=== PATIENT | female | born 1980 | race Caucasian/White ===

== ENCOUNTER → 2017-08-25 | Outpatient (REF) ==
[~2017-08-25] MED LIST: AC325T PO; ACHD5005 PO; ALBU17AE3 IH; ALBU8.5H2 IH; ALBUTEROL MDI INH; ANTI14DR4 OT; ASCO-262 PO; B12/1CAP; BUDE10.22 IH; BUDE180A IH; BUDE6HFA IH; BUPR100T6 PO; CALC600T25 PO; CEPH-38 PO; CEPH500C PO; CRAN450T9 PO; CYAN1TAB26 PO; DOXY100C2 PO; ESTR1TAB21 PO; FENO54TA PO; FURO-125 PO; GABA100C PO; HYDR-3714 PO; IBUP-1773 PO; KORE100C3 PO; LISI1TAB PO; LISI1TAB10 PO; METF-380 PO; MULT-305 PO; MULT-608 PO; MULT1CAP27 PO; MULTIVI PO; NAPR-243 PO; NFBIOT1000 PO; OMEG10005 PO; OMG1KC PO; PHEN200T27 PO; PRD50T PO; QVAR 80 MCG INH
--- NOTE | 2017-08-25 16:13 | Diagnostic Imaging Report ---
INDICATION: Injury to left knee. AP, oblique, and lateral views of the left knee are obtained as well as a sunrise view. No fracture or acute bony abnormality is seen. There is mild osteophyte formation in the medial compartment and patellofemoral compartment. There is no overt joint effusion. IMPRESSION: Minor degenerative changes with no acute bony abnormality seen. Dictated by: Dictated on workstation # [id number]
== END | disposition home or self-care (01) ==
LOC: MERGE 15:24 → OCC 15:24
PROVIDERS: ATTEND Nurse Practitioner Family
CPT/HCPCS: 73564

== ENCOUNTER 2018-04-13 08:03 | Outpatient (RCR) | payer MEDICAID, OTHER | END 2018-04-24 | disposition home or self-care (01) | PROVIDERS: ATTEND Orthopaedic Surgery | DX: M65.862 Other synovitis and tenosynovitis, left lower leg (principal); M17.12 Unilateral primary osteoarthritis, left knee ==

== ENCOUNTER → 2018-05-03 | Outpatient (CLI) | payer OTHER ==
[~2018-05-03] MED LIST changes: +PRD20T PO
--- NOTE | 2018-05-03 15:14 | Diagnostic Imaging Report ---
PROCEDURE: MRI left joint lower extremity without contrast. TECHNIQUE: Multiplanar, multisequence non contrast-enhanced MRI of the left lower extremity was accomplished. INDICATION: Left knee pain. No prior studies are available for comparison. There is a moderate sized knee joint effusion. The marrow signal intensity is unremarkable. No geographic marrow lesion or bone bruise is identified. There is some mild tricompartmental degenerative change noted. The ACL and PCL appear to be intact. The medial and lateral collateral ligament complexes are intact. Medial and lateral menisci are unremarkable. No tear or displaced meniscal fragment is seen. Extensor mechanism is unremarkable. IMPRESSION: Tricompartmental degenerative change and moderate joint effusion. No definite ligamentous or meniscal tear is identified. Dictated by: Dictated on workstation # [id number]
== END ==
LOC: RAD 12:10
PROVIDERS: ATTEND Orthopaedic Surgery
DX: M17.12 Unilateral primary osteoarthritis, left knee (principal)
CPT/HCPCS: 73721

== ENCOUNTER 2018-05-04 21:40 | Emergency (ER) | payer SELFPAY ==
[~2018-05-04] VITALS: Ht 154.9 cm; Wt 123.4 kg
[~2018-05-04 21:40] MED LIST changes: -PRD20T PO
[2018-05-04] MEDS ORDERED: predniSONE 20 MG TAB PO ONE (22:15)
[2018-05-04] MEDS ORDERED: PRD20T PO (22:15)
--- NOTE | 2018-05-04 22:15 | ED Integumentary General ---
General Chief Complaint: Allergic Reaction Stated Complaint: RASH ON BACK OF LEGS AND BUTTOX Source: patient Exam Limitations: no limitations History of Present Illness Date Seen by Provider: May 04, 2018 Time Seen by Provider: 22:11 Initial Comments 37-year-old female who presents to the emergency room with complaints of rash to her legs bilaterally and Botox. She reports that she tried a new soap 4 days ago and immediately broke out in hives rash on the areas of contact with the soap. She washed it off immediately and continued to have the hives and itching. She still has hives and redness to the lower extremities bilaterally. She reports trying Benadryl cream and hydrocortisone, oatmeal baths without relief. Timing/Duration: other (4 days ) Location: generalized (legs and buttocks.) Possible Cause: soaps Associated Symptoms: change in skin texture, rash Allergies and Home Medications Allergies Coded Allergies: liraglutide (Verified Allergy, Severe, ANAPHYLAXIS, 04/06/16) latex (Verified Allergy, Mild, HIVES, 01/01/12) Home Medications Albuterol 8.5 Gm Hfa.aer.ad, 2 PUFF IH Q4H PRN for SHORTNESS OF BREATH, ( Reported) PRN SOB Biotin 1,000 Mcg Tablet, 1,000 MCG PO DAILY, (Reported) Budesonide 180 Mcg Aer.pow.ba, 180 MCG IH BID, (Reported) Budesonide/Formoterol Fumarate 1 Inhaler Aero, 2 PUFF IH BID, (Reported) Cyanocobalamin/Folic Acid 1 Each Tablet, 1 EACH PO DAILY, (Reported) Fenofibrate 54 Mg Tablet, 54 MG PO DAILY, (Reported) Furosemide 20 Mg Tablet, 20 MG PO DAILY, (Reported) Hctz/Lisinopril 1 Tab Tablet, 1 EACH PO DAILY, (Reported) [place] Ginseng Root Extract 100 Mg Capsule, 100 MG PO DAILY, (Reported) Multivits W-Ca,Fe,Other Min 1 Each Tablet, 1 EACH PO DAILY, (Reported) Cedar-3 Fatty Acids 1,000 Mg Capsule, 1,000 MG PO BID, (Reported) Past Hybuzpp-Mtyqef-Neifby Hx Patient Social History Former Smoker, Quit: Apr 04, 2000 Recent Foreign Travel: No Contact w/Someone Who Travel: No Recent Hopitalizations: Yes Immunizations Up To Date Date of Pneumonia Vaccine: Jan 02, 2012 Seasonal Allergies Seasonal Allergies: No Past Medical History Gallbladder, Oophorectomy Asthma High Cholesterol, Hypertension Neuropathy Reproductive Disorders: Yes MANUAL WRITER History: Hysterectomy Diabetes, Non-Insulin dep Family Medical History Arthritis 19 MOTHER Seizure disorder G8 SISTER No Family History of: AIDS Alcoholism Alzheimer's disease Asthma Cardiovascular disease Colon cancer Completed stroke Dementia Diabetes mellitus Drug abuse Gastroenteritis Glaucoma Hypertension Kidney disease Myocardial infarction Parkinson's disease Prostate cancer Psychosocial problem Respiratory disorder Thyroid disease Tuberculosis Physical Exam Vital Signs Capillary Refill : Progress/Results/Core Measures Results/Orders My Orders Orders - SRINIVAS CLARK Prednisone Tablet (Deltasone Tablet) (05/04/18 22:15) Departure Impression Primary Impression: Allergic reaction Additional Impression: Contact dermatitis Disposition: HOME, SELF-CARE Condition: Stable/Unchanged Departure-Patient Inst. Decision time for Depature: 22:13 Referrals: [facility] (PCP) Primary Care Physician JULIAN ORDAZ APRN (Family) Primary Care Physician Patient Instructions: Skin Rash (DC) Add. Discharge Instructions: Take medications as directed. You may continue to use topical hydrocortisone cream and Benadryl cream. You may also use Benadryl by mouth as directed by the bottle for additional itching relief. Follow-up with her primary care provider within 1 week for recheck. Return back to the emergency room for any worsening symptoms. All discharge instructions reviewed with patient and/or family. Voiced understanding. Scripts Prednisone (Prednisone) 20 Mg Tab 40 MG PO DAILY for 5 Days, #10 TAB Prov: SRINIVAS CLARK 05/04/18 SRINIVAS CLARK May 04, 2018 22:15
[2018-05-04 22:48] VITALS: BP 172/111
== END 2018-05-04 22:48 | disposition home or self-care (01) ==
LOC: EDUNIT# 21:40 → ER 21:42
DX: T78.40XA Allergy, unspecified, initial encounter (principal); L25.9 Unspecified contact dermatitis, unspecified cause; J45.909 Unspecified asthma, uncomplicated; E78.00 Pure hypercholesterolemia, unspecified; I10 Essential (primary) hypertension; E11.9 Type 2 diabetes mellitus without complications; Z90.710 Acquired absence of both cervix and uterus; Z91.040 Latex allergy status; Z79.51 Long term (current) use of inhaled steroids; Z87.891 Personal history of nicotine dependence
CPT/HCPCS: 99283